=== PATIENT | male | born 1960 | race African-American/Black ===

== ENCOUNTER 2024-07-17 05:10 | Emergency (ER) | payer MEDICAID, OTHER ==
[~2024-07-17] VITALS: Ht 177.8 cm; Wt 75.0 kg
[~2024-07-17 05:10] MED LIST: ACET-3161
[2024-07-17 05:14] VITALS: BP 152/124; PULSE 71; RESP 18; TEMP 98.5; O2SAT 98
[2024-07-17 06:24] LABS: BASOPHILS % 0.5 % (0.0-2.0); EOSINOPHILS % 1.4 % (0.0-5.0); HEMATOCRIT. 41.5 % (42.0-52.0); HEMOGLOBIN. 13.9 g/dL (14.0-18.0); LYMPHOCYTES % 43.5 % (20.0-50.0); MEAN CORPUSCULAR HEMOGLOBIN 32.8 pg (28.0-32.0); MEAN CORPUSCULAR HGB CONC 33.6 g/dL (31.0-37.0); MEAN CORPUSCULAR VOLUME 97.7 fL (80.0-94.0); MEAN PLATELET VOLUME 7.4 fl (7.4-10.4); MONOCYTES % 7.4 % (2.0-8.0); NEUTROPHILS % 47.2 % (40.0-76.0); PLATELET 181 x1000/uL (130-400); RED BLOOD CELL COUNT 4.24 mill/uL (4.7-6.1); RED CELL DISTRIBUTION WIDTH 12.4 % (11.6-14.6); WHITE BLOOD COUNT 6.9 x1000/uL (4.5-11.0)
[2024-07-17 06:45] LABS: CHLORIDE 102 mEq/L (98-107); POTASSIUM 4.1 mEq/L (3.5-5.1); SODIUM 138 mEq/L (136-145)
[2024-07-17 06:46] LABS: CALCIUM 9.4 mg/dL (8.7-10.4); CARBON DIOXIDE 30 mEq/L (21-32)
[2024-07-17 06:51] LABS: GLUCOSE 92 mg/dL (70-105); UREA NITROGEN BLOOD 14 mg/dL (9-23)
== END 2024-07-17 10:57 | disposition home or self-care (01) ==
LOC: ER 05:10
DX: R25.2 Cramp and spasm (principal); I10 Essential (primary) hypertension; J44.9 Chronic obstructive pulmonary disease, unspecified; Z88.0 Allergy status to penicillin
CPT/HCPCS: 36415; 80048; 85025; 99283